=== PATIENT | female | born 1950 | race Caucasian/White ===

== ENCOUNTER 2018-06-23 05:02 | Emergency (ER) | payer BC, MEDICARE ==
[~2018-06-23] VITALS: Ht 157.5 cm; Wt 81.0 kg
[~2018-06-23 05:02] MED LIST: APIX5TAB3 PO; ASPI81TA30 PO; ATOR10TA70 PO; HYDR25TA4 PO; LISI-600 PO; METF-950 PO; SOTA80TA73 PO
[2018-06-23 05:05] VITALS: BP 158/87
[2018-06-23] MEDS ORDERED: HYDROcodone/acetaminophen 5mg/325mg tablet PO STA (05:08)
--- NOTE | 2018-06-23 05:11 | NUR ---
Pt prefers to stay in w/c. She had ice on her ankle at home for about 1 hour [employer].
== END 2018-06-23 06:18 | disposition home or self-care (01) ==
LOC: ER 05:02
DX: S93.402A Sprain of unspecified ligament of left ankle, initial encounter (principal); E78.00 Pure hypercholesterolemia, unspecified; I10 Essential (primary) hypertension; E11.9 Type 2 diabetes mellitus without complications; Z90.49 Acquired absence of other specified parts of digestive tract; Z90.710 Acquired absence of both cervix and uterus; Z98.890 Other specified postprocedural states; Z88.1 Allergy status to other antibiotic agents; Z88.8 Allergy status to other drugs, medicaments and biological substances; Z79.82 Long term (current) use of aspirin; Z79.84 Long term (current) use of oral hypoglycemic drugs; Z79.899 Other long term (current) drug therapy; W01.0XXA Fall on same level from slipping, tripping and stumbling without subsequent striking against object, initial encounter; Y93.01 Activity, walking, marching and hiking; Y92.89 Other specified places as the place of occurrence of the external cause; Y99.8 Other external cause status
CPT/HCPCS: 29515; 73610; 99284

== ENCOUNTER 2021-05-22 12:51 | Emergency (ER) | payer BC, MEDICARE ==
[~2021-05-22 12:51] MED LIST changes: -LISI-600 PO; +LISI20TA28 PO; +METF-1203 PO; -METF-950 PO
== END 2021-05-22 17:05 | disposition left against medical advice (07) ==
LOC: ER 12:51
DX: M54.9 Dorsalgia, unspecified (principal); Z53.21 Procedure and treatment not carried out due to patient leaving prior to being seen by health care provider

== ENCOUNTER 2022-04-05 11:23 | Emergency (ER) | payer MEDICARE ==
[~2022-04-05] VITALS: Ht 162.6 cm; Wt 90.9 kg
[2022-04-05 11:50] LABS: BASOPHILS % (AUTO) 0.6 % (0-1); EOSINOPHILS # (AUTO) 0.1 X10'3 (0-0.9); EOSINOPHILS % (AUTO) 1.4 % (0-6); HEMATOCRIT 42.6 % (35.0-45.0); LYMPHOCYTES # (AUTO) 2.6 X10'3 (1.1-4.8); MEAN CORPUSCULAR HEMOGLOBIN 30.7 PG (27.0-31.0); MEAN CORPUSCULAR HGB CONC 32.8 g/dL (33.0-36.5); MEAN CORPUSCULAR VOLUME 93.7 FL (78-98); MEAN PLATELET VOLUME 7.8 FL (7.4-10.4); MONOCYTES # (AUTO) 0.5 X10'3 (0-0.9); MONOCYTES % (AUTO) 7.5 % (2-12); NEUTROPHILS # (AUTO) 3.4 X10'3 (1.8-7.7); NEUTROPHILS % (AUTO) 51.5 % (42-75); PLATELET COUNT 254 X10'3 (140-440); RED BLOOD COUNT 4.55 X10'6 (4.20-5.60); RED CELL DISTRIBUTION WIDTH 13.7 % (11.5-14.5); WHITE BLOOD COUNT 6.6 X10'3 (4.5-11.0)
[2022-04-05 11:52] LABS: CLARITY,URINE CLEAR (Clear); COLOR,URINE YELLOW (Yellow); GLUCOSE, URINE NEGATIVE (Neg); KETONES,URINE NEGATIVE (Neg); LEUKOCYTE ESTERASE ,URINE NEGATIVE (Neg); NITRITES, URINE NEGATIVE (Neg); OCCULT BLOOD,URINE NEGATIVE (Neg); PH,URINE 5.5 (4.8-8.0); PROTEIN,URINE NEGATIVE (Neg); UROBILINOGEN,URINE 0.2 E.U/dL (0.2-1.0)
[2022-04-05 12:00] LABS: UA COLLECTION TYPE CLN CATCH MIDSTREAM
[2022-04-05 12:04] LABS: ALANINE AMINOTRANSFERASE 19 U/L (12-78); ALBUMIN 3.9 G/DL (3.4-5.0); ALBUMIN/GLOBULIN RATIO 0.9 (1.1-1.5); ALKALINE PHOSPHATASE 80 IU/L (46-116); ANION GAP 9 (8-16); ASPARTATE AMINO TRANSFERASE 14 U/L (10-37); BILIRUBIN,TOTAL 0.4 MG/DL (0.1-1.0); BLOOD UREA NITROGEN 19 MG/DL (7-18); CHLORIDE 100 MMOL/L (99-107); GLUCOSE 187 MG/DL (70-104); LIPASE 109 U/L (73-393); POTASSIUM 4.2 MMOL/L (3.5-5.1); SODIUM 138 MMOL/L (135-145); TOTAL CARBON DIOXIDE 29.2 MMOL/L (24-32); TOTAL PROTEIN 8.2 G/DL (6.4-8.2); eGFR 54 ML/MIN
[2022-04-05 12:20] LABS: CALCIUM 9.1 MG/DL (8.5-10.1)
--- NOTE | 2022-04-05 13:01 | NUR ---
CHARGE NURSE TATUM RN NOTIFIED OF GENERAL ASSESSMENT DONE FOR REVIEW.
[2022-04-05] MEDS ORDERED: acetaminophen 325mg tablet PO ONE (13:15)
--- NOTE | 2022-04-05 14:07 | NUR ---
CHEERLEADING COACH AT BEDSIDE
[2022-04-05 14:55] VITALS: BP 139/76
== END 2022-04-05 14:57 | disposition home or self-care (01) ==
LOC: ER 11:23
DX: R10.31 Right lower quadrant pain (principal); E78.00 Pure hypercholesterolemia, unspecified; I10 Essential (primary) hypertension; G89.29 Other chronic pain; E11.9 Type 2 diabetes mellitus without complications; Z90.49 Acquired absence of other specified parts of digestive tract; Z98.890 Other specified postprocedural states; Z88.1 Allergy status to other antibiotic agents; Z88.8 Allergy status to other drugs, medicaments and biological substances; Z79.899 Other long term (current) drug therapy
CPT/HCPCS: 36415; 76830; 76856; 80053; 81003; 83690; 85025; 99284

== ENCOUNTER 2022-10-07 11:43 | Emergency (ER) | payer OTHER, MEDICARE ==
[~2022-10-07] VITALS: Ht 157.5 cm; Wt 86.1 kg
[2022-10-07 12:24] VITALS: BP 148/89
[2022-10-07] MEDS ORDERED: HYDR-3973 PO (13:41)
== END 2022-10-07 14:18 | disposition home or self-care (01) ==
LOC: ER 11:44
DX: M25.512 Pain in left shoulder (principal); W19.XXXA Unspecified fall, initial encounter; Y93.89 Activity, other specified; Y92.89 Other specified places as the place of occurrence of the external cause; Y99.8 Other external cause status
CPT/HCPCS: 73030; 99283; A4565

== ENCOUNTER 2022-11-27 06:13 | Emergency (ER) | payer MEDICARE, OTHER ==
[~2022-11-27] VITALS: Ht 157.5 cm; Wt 93.0 kg
[2022-11-27 06:19] VITALS: BP 192/88; PULSE 71; RESP 18; TEMP 97.8; O2SAT 98
== END 2022-11-27 09:29 | disposition left against medical advice (07) ==
LOC: ER 06:13
DX: M54.9 Dorsalgia, unspecified (principal); Z53.21 Procedure and treatment not carried out due to patient leaving prior to being seen by health care provider
CPT/HCPCS: 99281

== ENCOUNTER 2024-01-08 09:12 | Outpatient (CLI) | payer MEDICARE, MEDICAID | END 2024-01-08 23:59 | disposition home or self-care (01) | LOC: RAD 09:12 | PROVIDERS: ATTEND Pediatrics Sports Medicine | DX: M18.11 Unilateral primary osteoarthritis of first carpometacarpal joint, right hand (principal); G56.21 Lesion of ulnar nerve, right upper limb; M25.531 Pain in right wrist; M25.532 Pain in left wrist | CPT/HCPCS: 73200 ==